=== PATIENT | female | born 1950 | race Hispanic/Latino ===

== ENCOUNTER 2018-02-24 19:07 | Emergency (ER) | payer MEDICARE ==
[2018-02-24] MEDS ORDERED: Albuterol Sulfate 2.5 mg/3 ml Neb ONE (19:44)
[2018-02-24 20:23] LABS: Band 4 % (5-11); Hemoglobin 11.5 g/dL (12.0-16.0); Lymphocytes 21 % (21-51); MDiff Complete? YES; Mean Corpuscular HGB CONC 34.9 g/dL (32.0-36.0); Mean Corpuscular Hemoglobin 33.6 pg (27.0-31.0); Mean Platelet Volume 8.7 fL (7.4-10.4); Monocytes 5 % (0-10); Neutrophil 70 % (42-75); PLT Morphology Comment Appears Adequate; Platelet Count 249 thou/uL (130-400); RBC Distribution Width 11.3 % (11.5-14.5); Red Blood Cell (RBC) Count 3.43 mill/uL (4.20-5.40); White Blood Cell (WBC) Count 8.8 thou/uL (4.8-10.8)
[2018-02-24 20:32] LABS: CKMB 1.7 ng/mL (0-6.6); Troponin I 0.028 ng/mL (< 0.028)
[2018-02-24] MEDS ORDERED: Furosemide 20 MG/2 ML VIAL ONE (20:45)
[2018-02-24 20:57] LABS: ALT (SGPT) 45 U/L (8-55); AST (SGOT) 26 U/L (5-34); Albumin 3.1 g/dL (3.4-4.8); Alkaline Phosphatase 116 U/L (40-150); Anion Gap 12 mmol/L (10-20); BUN (Urea Nitrogen) 15 mg/dL (9.8-20.1); Calc. Creatinine Clearance 0 mL/min (70-130); Calcium 8.5 mg/dL (7.8-10.44); Carbon Dioxide 24 mmol/L (23-31); Chloride 105 mmol/L (98-107); Estimated GFR-MDRD 75; Globulin 3.9 g/dL (2.4-3.5); Glucose 271 mg/dL (80-115); Potassium 4.3 mmol/L (3.5-5.1); Sodium 137 mmol/L (136-145)
== END 2018-02-24 21:09 | disposition short-term general hospital (02) ==
LOC: SCSER 19:07
DX: J96.91 Respiratory failure, unspecified with hypoxia (principal); I11.0 Hypertensive heart disease with heart failure; I50.23 Acute on chronic systolic (congestive) heart failure; E11.9 Type 2 diabetes mellitus without complications; E03.9 Hypothyroidism, unspecified; E78.5 Hyperlipidemia, unspecified; J45.909 Unspecified asthma, uncomplicated; I10 Essential (primary) hypertension; Z79.4 Long term (current) use of insulin
CPT/HCPCS: 80053; 82553; 83880; 84484; 85025; 93005; 94640; J1940; J7611

== ENCOUNTER 2018-02-24 21:53 | Inpatient (IN) | payer MEDICARE ==
[~2018-02-24 21:53] MED LIST: ISOVUE-370 76%-LOCM 1 ML ONE
--- NOTE | 2018-02-24 23:47 | CT ---
CTA THORAX WITH CONTRAST: 02/24/18 at 1:10 p.m. (Computed Tomographic Angiography, chest(noncoronary) with contrast material, and image postprocessin g) (PE protocol) HISTORY: 67-year-old female with dyspnea. TECHNIQUE: IV injection of iodinated contrast: Isovue Scan acquisition timing attempted to coincide with iodinated contrast bolus reaching maximal density in pulmonary arteries. 3D MIP reconstructions. FINDINGS: There is no pulmonary thromboembolism. There is a metallic stent at the most proximal portion of the ascending aorta. There is extensive atherosclerotic calcification of the thoracic aorta. No pulmonary thromboembolism and no aortic dissection. Small bilateral pleural effusions, right greater than left . Small areas of passive atelectasis in the bilateral lower lobes abutting the pleural effusions. Mil d cardiomegaly. Sternotomy wires. Irregularly shaped soft tissue density material in the prevascular space of the anterior mediastinum. There is a minimal sliding hiatal hernia. There is no pulmonary th romboembolism. IMPRESSION: 1. No pulmonary thromboembolism. 2. Stent at aortic root. 3. Status post open heart surgery. 4. Small amount of soft tissue density material in the anterior mediastinum. This is nonspecific , but if the open heart surgery was recent, perhaps this represents a small, mild postsurgical hemato ma. 5. Small bilateral pleural effusions. karin[] POS: ALLA
[2018-02-25] MEDS ORDERED: Nitroglycerin 2% Ointment 1 INCH/1 GM Packet ONE (00:23)
--- NOTE | 2018-02-25 00:45 | PDOC.FPRHP ---
- History of Present Illness Chief Complaint: SOB History of Present Illness: This is a 67 yo F here from [facility] with CHF exacerbation with hypoxia. No known hx of CHF. The patient was placed on Bipap due to hypoxia and given 20mg lasix. Patient has a PMH significant for aortic valve replacement 4-5mo ago. The patient endorses feeling SOB X 3 days. The patient also complains of a nonproductive cough worse within the last week. She recently drove to the area from [place] to visit family. Patient has had to use more pillows to sit up at night to sleep. Walking makes the SOB worse. She endorses feeling chest pressure worse over the last week and worse lying flat. Family states patient is not compliant with medications and had not been taking them regularly prior to traveling to [place] from [place]. Patient denies LE swelling or pain. Denies fever, chills, NVD, or chest pain. ED Course: given 20 lasix, nitro paste - Allergies/Adverse Reactions Allergies Allergy/AdvReac Type Severity Reaction Status Date / Time indomethacin [From Indocin] Allergy Verified 02/25/18 02:12 - Home Medications Medication Instructions Recorded Confirmed Type Amlodipine [Norvasc] 10 mg PO DAILY 02/25/18 02/25/18 History Atorvastatin Calcium 40 mg PO DAILY 02/25/18 02/25/18 History Furosemide 20 mg PO TID 02/25/18 02/25/18 History Levothyroxine Sodium [Synthroid] 25 mcg PO 0600 02/25/18 02/25/18 History Losartan [Cozaar] 50 mg PO DAILY 02/25/18 02/25/18 History Montelukast Sodium [Singulair] 10 mg PO HS 02/25/18 02/25/18 History traMADol HCl [Tramadol HCl] 50 mg PO Q6H PRN 02/25/18 02/25/18 History - History PMHx: uterine cancer, CHF, DMII on insulin, Hypothyroidism, HLD, HTN, asthma PSHx: hysterectomy, aortic valve replacement 4-5months ago FHx: noncontributory Social: social drinker - 1 X month, denies tobacco or drug use - Review of Systems General: reports: weight/appetite/sleep changes (gained). denies: fever/chills , night sweats Eyes: denies: eye pain, vision changes ENT: denies: nasal congestion Respiratory: reports: cough, shortness of breath. denies: congestion Cardiovascular: reports: edema, paroxysmal nocturnal dyspnea, orthopnea. denies : chest pain, palpitation Gastrointestinal: denies: nausea, vomiting, diarrhea, constipation, abdominal pain Genitourinary: denies: incontinence, dysuria, polyuria Skin: denies: rashes Musculoskeletal: denies: pain Neurological: denies: syncope, seizure Psychological: denies: anxiety, depression - Vital signs BP: 172/88 HR: 87 RR: 26 Tmax: 98.8 Pox: 94% on Bipap Wt: 125kg - Physical Exam Constitutional: NAD, awake, alert and oriented, well developed HEENT: normocephalic and atraumatic, EOMI, grossly normal vision, grossly normal hearing Chest: no-tender to palpation, no lesions Heart: RRR, normal S1/S2, no murmurs/rubs/gallops, pulses present -Heart: 1+ pitting edema in BLE Lungs: CTAB, no respiratory distress, good air movement (unable to listen to patient posterior chest) Abdomen: soft, non-tender, bowel sounds present Musculoskeletal: normal tone, ROM grossly normal Neurological: no focal deficit, CN II-XII intact Skin: no rash/lesions, no jaundice Heme/Lymphatic: no unusual bruising or bleeding, no LAD Psychiatric: normal mood and affect, good judgment and insight FMR H&P: A/P - Problem List (1) CHF exacerbation Current Visit: Yes Status: Acute Code(s): I50.9 - HEART FAILURE, UNSPECIFIED (2) HTN (hypertension) Current Visit: Yes Status: Acute Code(s): I10 - ESSENTIAL (PRIMARY) HYPERTENSION (3) HLD (hyperlipidemia) Current Visit: Yes Status: Acute Code(s): E78.5 - HYPERLIPIDEMIA, UNSPECIFIED (4) Hypothyroid Current Visit: Yes Status: Acute Code(s): E03.9 - HYPOTHYROIDISM, UNSPECIFIED (5) Diabetes Current Visit: Yes Status: Acute Code(s): E11.9 - TYPE 2 DIABETES MELLITUS WITHOUT COMPLICATIONS - Plan This is a 67 yo F here for CHF exacerbation with hypoxia. CHF exacerbation - satting 98 on Bipap, will continue trials of weening off bipap - BNP 673, will repeat Tuesday AM - Will order Echo to be done tomorrow - Trop and CKMB neg - Will give Lasix TID HTN - continue current medications - Hydralazine PRN for SBP > 180 DM - WIll continue home med - mod SS HLD - continue home med Hypothyroidism - continue home med Asthma - aware, currently on Bipap, monitoring VS Case Discussed with Dr. Mendez FMR H&P: Upper Level - Pertinent history 67 yo female here for worsening SOB. Started about 3 days ago. Assoc SALAZAR, chest pressure, cough, unable to lay flat requiring multiple pillows to sleep. She recently drove from [place] to [place] and there was concern for PE. She has history of valve replacement in Jun 2017, sleep apnea, hypothyroid, DMII , HTN, HLD, uterine cancer. Family reports she is noncompliant with medications. - Pertinent findings 177/88 HR: 87 Temp: 98.8 SO2: 94% on bipap RR: 26 GEN: AOx3 CARD: RRR, no m/g/r PULM: mild wheezing b/l when listening in the front, but unable to come forward to listen on the back ABD: mild TTP epigastric EXT: b/l 1+ edema to the mid-miranda CTA: no PE, small b/l pleural effusion BNP: 673 trop: <0.028 Glucose: 271 Na: 137 K: 4.3 WBC: 8.8 - Plan Date/Time: 02/25/182 IRichard DO, have evaluated this patient and agree with findings/plan as outlined by internal audit director resident. Pertinent changes/additions are listed here. CHF exacerbation requiring bipap 2/2 respiratory distress elevated BNP clinical findings consistent with CHF since we have no past records and patient is not established in the area, we will check ECHO in the morning for more information about heart function Patient will be admitted to [facility] because she was not able to tolerate weaning down on bipap Hx of aortic heart valve replacement ECHO pending will request records, though they probably will not arrive during the weekend DMII patient does not know what or how much medications she takes so we will start on mild SSI and monitor and titrate HTN elevated in the ER home meds restarted, prn for SBP>180 TIANNA continue with cpap with automatic settings at bedtime once patient does not need bipap HLD Attending Addendum - Attending Addendum Date/Time: 02/25/18 0028 I personally evaluated the patient and discussed the management with Dr. Streeter. I agree with the History, Examination, Assessment and Plan documented above with any addition or exceptions noted below. The patient presents with worsening shortness of breath. Found to have new onset chf exacerbation requiring bipap. Will Admit to imcu, continue bipap, IV lasix. Will get echo, trend i/o. Pt negative for PE.
[2018-02-25] MEDS ORDERED: Ondansetron ODT 4 MG TAB SL PRN (02:18)
[2018-02-25] MEDS ORDERED: Ondansetron HCl/PF 4 MG/2 ML Vial IVP PRN ×2 (02:18→02:26)
[2018-02-25] MEDS ORDERED: Acetaminophen 325 MG TAB PO PRN ×2 (02:18→02:26)
[2018-02-25] MEDS ORDERED: Ondansetron ODT 4 MG TAB PO PRN (02:26)
[2018-02-25] MEDS ORDERED: Dextrose 5% in Water 1,000 ML IV PRN (02:26)
[2018-02-25] MEDS ORDERED: Dextrose 50% Abboject 50 ML SYRINGE SLOW IVP PRN (02:26)
[2018-02-25] MEDS ORDERED: Enoxaparin Sodium 40 MG/0.4 ML SYRINGE SC ONE (02:26)
[2018-02-25] MEDS ORDERED: hydrALAZINE 20 MG/ML VIAL SLOW IVP PRN (02:26)
[2018-02-25] MEDS ORDERED: Acetaminophen 650 MG Suppository PR PRN (02:26)
[2018-02-25 03:09] VITALS: BMI 47.2
[2018-02-25] MEDS: HumaLOG 300 UNITS/3 ML VIAL SC PRN ×4 (05:51→21:03)
--- NOTE | 2018-02-25 08:01 | PDOC.EVN ---
Event Note - Event Note Event Note: Pt reports improved breathing this morning. She denies cp currently. She has mild crackles in her lung bases bilaterally. We are changing lasix from PO to IV, start a beal catheter, and monitor strict I&Os. We will reassess later today.
[2018-02-25 08:10] LABS: Magnesium 1.7 mg/dL (1.6-2.6); Phosphorus 3.2 mg/dL (2.3-4.7)
[2018-02-25 08:13] LABS: CKMB 1.6 ng/mL (0-6.6); Troponin I 0.012 ng/mL (< 0.028)
[2018-02-25] MEDS ORDERED: Furosemide 20 MG TAB PO SCH (09:00)
[2018-02-25] MEDS ORDERED: Aspirin 325 MG TAB PO SCH ×3 (09:00→11:30)
[2018-02-25] MEDS: Amlodipine 10 MG TAB PO SCH (09:04)
[2018-02-25] MEDS: Losartan 25 MG TAB PO SCH (09:04)
[2018-02-25] MEDS ORDERED: Famotidine/PF 20 mg/2ml Vial SLOW IVP SCH (10:15)
--- NOTE | 2018-02-25 18:35 | CON ---
DATE OF CONSULTATION: 02/25/2018 CARDIOLOGY CONSULTATION REASON FOR CONSULTATION: Heart failure. HISTORY OF PRESENT ILLNESS: Mrs. Day is a very pleasant 67-year-old white female who comes to [facility] for shortness of breath. She recently drove from [place] all the way to [place] to [facility] her son, but is thinking about staying here indefinitely. She had open heart surgery and apparentl y she was supposed to have an aortic valve replacement, but this could not be done for some reason an d had to have TAVR apparently go up from the groin and eventually received a new valve. After she dr joseph, she had new onset of shortness of breath. She came to the hospital because of this. CT of the chest showed no evidence of pulmonary embolism and she was admitted for heart failure exacerbation. From what she tells me, she did not need any stenting or any bypass surgery during her valve replacem ent. Currently, she has already been given IV Lasix and is already feeling much better with only patrick al cannula. She was on BiPAP when she came in. PAST MEDICAL HISTORY: 1. History of diastolic heart failure. 2. History of severe aortic stenosis, status post TAVR. 3. TAVR about 5 months ago. 4. Hypertension. 5. Hypothyroidism. 6. Bronchial asthma. 7. History of uterine cancer. 8. History of congestive heart failure. 9. History of type 2 diabetes. OUTPATIENT MEDICATIONS: Include, 1. Norvasc 10 mg a day. 2. Atorvastatin 40 mg at bedtime. 3. Furosemide 20 mg t.i.d. 4. Synthroid 25 mcg a day. 5. Losartan 50 mg a day. 6. Singulair. 7. Tramadol p.r.n. pain. ALLERGIES: INDOMETHACIN. PAST SURGICAL HISTORY: 1. Hysterectomy. 2. Aortic valve replacement about 5 months ago, TAVR apparently. FAMILY HISTORY: Noncontributory. SOCIAL HISTORY: Social alcohol use about one time a month. No tobacco or drug use. REVIEW OF SYSTEMS: A 12-point review of systems was done and is all negative unless stated in the hi story of present illness. PHYSICAL EXAMINATION: VITAL SIGNS: Temperature 98.1, pulse 84, respiration rate 18, satting 96% on 2 liters nasal cannula, blood pressure 156/73. GENERAL: Awake, alert, oriented x3, in no distress. HEENT: Normocephalic, atraumatic. NECK: Supple. LUNGS: Clear. CARDIOVASCULAR: S1, S2. No S3, S4. There is a grade 2/6 systolic murmur in the right upper sternal border. ABDOMEN: Soft with positive bowel sounds. EXTREMITIES: Trace edema. SKIN: Warm and dry. LABORATORY WORK: Reviewed. White count of 8.8, hemoglobin of 11, hematocrit of 33, platelet count o f 249,000. Chemistries with a sodium of 137, potassium of 4.3, chloride of 105, carbon dioxide of 24 , anion gap of 12, BUN of 15, creatinine 0.77, GFR of 75, glucose of 271, calcium of 8.5. Magnesium and phosphorus are normal. Total bilirubin, AST, ALT and alkaline phosphatase are all normal. Tropo demetrice is negative x2. BNP was 673. Albumin of 3.1. EKG was reviewed, no ischemic changes. Echocardiogram was reviewed. Normal EF at 60%-65%. Grade 2/3 diastolic dysfunction. She has a bundle branch block morphology. M ild LVH and elevated right ventricular systolic pressures at about [address] of the chest with contrast was reviewed. No evidence of pulmonary embolism. There is a stent at the aortic root. This is not really a stent. Most likely what they are talking about is a CoreValve TAVR, which has a stent that goes into the ascending aorta. There is a small amount of soft tissue density in the anterior mediastinum, which is nonspecific, likely mild postsurgical hematoma and ther e are small bilateral pleural effusions. ASSESSMENT: 1. Acute on chronic diastolic heart failure. 2. Aortic stenosis, status post transcatheter aortic valve replacement, most likely a CoreValve. 3. Hypertension. PLAN: 1. Continue IV Lasix for now. 2. Resume home medications for blood pressure. 3. Up titrate as needed for blood pressure control. 4. We will plan at least IV Lasix tomorrow and then switch to p.o. and see how she does. She is pro bably going to have to need an increased dose from 20 t.i.d. to probably about 40 twice a day. Thank you for letting us participate in the care of your patient. We will follow.
[2018-02-25] MEDS: Famotidine/PF 20 mg/2ml Vial SLOW IVP SCH (20:49)
[2018-02-25] MEDS: Furosemide 40 MG/4 ML VIAL SLOW IVP SCH (20:49)
[2018-02-26 04:40] LABS: #Eosinphils 0.3 thou/uL (0.0-0.7); #Lymphocytes 1.5 thou/uL (1.20-3.40); #Monocytes 0.4 thou/uL (0.11-0.59); #Neutrophils 3.6 thou/uL (1.40-6.50); %Basophils 0.3 % (0.0-1.0); %Eosinophils 5.3 % (0.0-10.0); %Lymphocytes 25.6 % (21.0-51.0); %Monocytes 7.2 % (0.0-10.0); %Neutrophils 61.6 % (42.0-75.0); Hemoglobin 11.4 g/dL (12.0-16.0); Mean Corpuscular HGB CONC 31.1 g/dL (32.0-36.0); Mean Corpuscular Hemoglobin 32.3 pg (27.0-31.0); Mean Platelet Volume 8.1 fL (7.4-10.4); Platelet Count 246 thou/uL (130-400); RBC Distribution Width 12.1 % (11.5-14.5); Red Blood Cell (RBC) Count 3.52 mill/uL (4.20-5.40); White Blood Cell (WBC) Count 5.8 thou/uL (4.8-10.8)
[2018-02-26 04:55] LABS: ALT (SGPT) 26 U/L (8-55); AST (SGOT) 12 U/L (5-34); Albumin 2.9 g/dL (3.4-4.8); Alkaline Phosphatase 105 U/L (40-150); Anion Gap 10 mmol/L (10-20); BUN (Urea Nitrogen) 17 mg/dL (9.8-20.1); Bilirubin, Total 0.8 mg/dL (0.2-1.2); Calc. Creatinine Clearance 126 mL/min (70-130); Calcium 8.2 mg/dL (7.8-10.44); Carbon Dioxide 30 mmol/L (23-31); Chloride 101 mmol/L (98-107); Estimated GFR-MDRD 69; Globulin 3.7 g/dL (2.4-3.5); Glucose 199 mg/dL (80-115); Potassium 4.3 mmol/L (3.5-5.1); Protein, Total 6.6 g/dL (6.0-8.3); Sodium 137 mmol/L (136-145)
--- NOTE | 2018-02-26 05:27 | PDOC.FM ---
- Subjective Subjective: Pt. states her breathing is improved. She reports decreased leg swelling. She denies cp, N/V, or abdominal pain. She reports she takes insulin at home but has been in the processes of changing her physician. - Objective MAR Reviewed: Yes Vital Signs & Weight: Vital Signs (12 hours) Temp Pulse Resp BP Pulse Ox 02/26/18 04:00 98.3 F 76 18 154/66 H 98 02/25/18 23:45 98.2 F 73 18 132/64 95 02/25/18 19:15 99.2 F 86 22 H 143/85 H 96 Weight Admit Weight 121 kg Weight 120.6 kg I&O: 02/24/18 02/25/18 02/26/18 06:59 06:59 06:59 Intake Total 40 1400 Output Total 1250 Balance 40 150 Result Diagrams: 02/26/18 04:22 02/26/18 04:22 <Marco Pop - Last Filed: 02/26/18 09:14> - Objective Vital Signs & Weight: Vital Signs (12 hours) Temp Pulse Pulse Resp BP BP BP 02/26/18 15:39 99.2 F 87 18 136/78 02/26/18 12:30 93 109/60 02/26/18 10:49 98.5 F 82 18 144/53 H 02/26/18 08:47 81 162/69 H 02/26/18 07:51 02/26/18 07:18 98.6 F 86 20 140/58 L Pulse Ox 02/26/18 15:39 93 L 02/26/18 12:30 02/26/18 10:49 02/26/18 08:47 02/26/18 07:51 96 02/26/18 07:18 94 L Weight Admit Weight 121 kg Weight 120.6 kg I&O: 02/25/18 02/26/18 02/27/18 06:59 06:59 06:59 Intake Total 40 1890 Output Total 2050 900 Balance 40 -160 -900 Result Diagrams: 02/26/18 04:22 02/26/18 04:22 <Bess Mendez - Last Filed: 02/26/18 16:16> Phys Exam - Physical Examination Constitutional: NAD HEENT: PERRLA, moist MMs Respiratory: no wheezing, clear to auscultation bilateral Good air movement, improved breath sounds Cardiovascular: RRR, no significant murmur Gastrointestinal: soft, non-tender, no distention Musculoskeletal: edema present 2+ pitting edema, improved Neurological: moves all 4 limbs Psychiatric: A&O x 3 Skin: cap refill <2 seconds <Marco Pop - Last Filed: 02/26/18 09:14> Dx/Plan (1) (HFpEF) heart failure with preserved ejection fraction Code(s): I50.30 - UNSPECIFIED DIASTOLIC (CONGESTIVE) HEART FAILURE Status: Acute (2) CHF exacerbation Code(s): I50.9 - HEART FAILURE, UNSPECIFIED Status: Acute (3) Diabetes Code(s): E11.9 - TYPE 2 DIABETES MELLITUS WITHOUT COMPLICATIONS Status: Acute (4) HLD (hyperlipidemia) Code(s): E78.5 - HYPERLIPIDEMIA, UNSPECIFIED Status: Acute (5) HTN (hypertension) Code(s): I10 - ESSENTIAL (PRIMARY) HYPERTENSION Status: Acute (6) Hypothyroid Code(s): E03.9 - HYPOTHYROIDISM, UNSPECIFIED Status: Acute - Plan Plan: This is a 67 yo female with a PMH of HTN, DMII, HLD, hypothyroidism CHF exacerbation -Pt. had echo yesterday revealing HFpEF with an EF of 60-65%. We are currently diuresing her with lasix and monitoring strict I&Os. Per Dr. Decker, we will continue IV lasix today and switch to PO. Pt. is currently in the CCU and can likely move to the floor today. HTN -We are continuing her current medications. Pt. has PRN hydralazine for sbp >180 DMII -ACHS accuchecks, SSI HLD -Continue home meds Hypothryoidism -Continue home meds Asthma -Aware, currently on 2L nc Code: DNR Prophylaxis:Lovenox, pepcid Family: none at bedside Disposition: home in 1-2 days <DonnMarco - Last Filed: 02/26/18 09:14> (1) CHF exacerbation Code(s): I50.9 - HEART FAILURE, UNSPECIFIED Status: Acute (2) HTN (hypertension) Code(s): I10 - ESSENTIAL (PRIMARY) HYPERTENSION Status: Acute (3) HLD (hyperlipidemia) Code(s): E78.5 - HYPERLIPIDEMIA, UNSPECIFIED Status: Acute (4) Hypothyroid Code(s): E03.9 - HYPOTHYROIDISM, UNSPECIFIED Status: Acute (5) Diabetes Code(s): E11.9 - TYPE 2 DIABETES MELLITUS WITHOUT COMPLICATIONS Status: Acute <Bess Mendez - Last Filed: 02/26/18 16:16> Attending Addendum - Attending Addendum Date/Time: 02/26/18 0615 I personally evaluated the patient and discussed the management with Dr. Pop. I agree with the History, Examination, Assessment and Plan documented above with any addition or exceptions noted below. Pt is doing well off bipap. continue lasix. Will transfer out of the [facility]. <Bess Mendez - Last Filed: 02/26/18 16:16>
[2018-02-26 05:42] LABS: Free T4 (Free Thyroxine) 0.75 ng/dL (0.70-1.48)
[2018-02-26] MEDS: HumaLOG 300 UNITS/3 ML VIAL SC PRN ×4 (06:12→21:33)
--- NOTE | 2018-02-26 07:06 | CON ---
DATE OF CONSULTATION: 02/25/2018 HISTORY OF PRESENT ILLNESS: Ms. Shay Chavez is a very pleasant 67-year-old female, who was adm itted with a diagnosis of congestive heart failure. Chest CT was done in the emergency room which shows small pleural effusions, but not terrible pulmona ry edema. She has been complaining of shortness of breath for several days. There is no evidence of thromboembolic disease. She did have a BNP of 673. I was consulted because of her presence in the Intermediate Care Unit. PAST MEDICAL HISTORY: 1. Negative for any history of heart failure in the past, although she has had a transcutaneous aort ic valve replacement. It is unclear why this was done as opposed to an open procedure. 2. History of diabetes. 3. History of hypertension. 4. Hypothyroidism. 5. History of asthma. 6. History of uterine cancer. 7. History of aortic stenosis prior to her TAVR. MEDICATIONS: Prior to admission, she was on Norvasc, atorvastatin, Lasix, Synthroid (her TSH is 11), she is only on 25 mcg a day, losartan, Singulair, tramadol. ALLERGIES: She reports NONSTEROIDAL intolerance. FAMILY HISTORY: Negative for lung disease in early age. She rarely drinks. SOCIAL HISTORY: She is a nonsmoker. Does not use drugs. REVIEW OF SYSTEMS: A 10-point review of systems is otherwise negative. PHYSICAL EXAMINATION: GENERAL: She is afebrile, heart rate 86, respiratory rate 22, oximetry is 96 on 2 liters, blood pres sure 109/60. HEENT: Pupils are equal. Sclerae anicteric. NECK: Supple. No lymphadenopathy. LUNGS: Clear. HEART: Regular rhythm. S1 and S2 are slightly distant. ABDOMEN: Soft and nontender. EXTREMITIES: No clubbing, cyanosis, or edema. NEUROLOGIC: Grossly nonfocal. CT pulmonary angiogram shows small bilateral effusions, right greater than left, as mentioned earlier , IMPRESSION: Dyspnea on presentation is suggestive of congestive heart failure, although her radiogra phic abnormalities were very mild. It might be that she just had some diastolic dysfunction. Some hypertension while she was traveling. Asthma still in the differential, although she is not bronchospastic and does not have a long expir atory phase on exam. I will be happy to follow with the other physicians caring for her. I will consult to Cardiology. S he is planning on possibly living in the community, so she needs to establish a relationship with a c ardiologist now that she has an artificial aortic valve. So, 50-minute consult, 50% of the time was spent with me coordinating care.
[2018-02-26] MEDS: Losartan 25 MG TAB PO SCH (08:47)
[2018-02-26] MEDS: Aspirin 325 MG TAB PO SCH (08:47)
[2018-02-26] MEDS: Amlodipine 10 MG TAB PO SCH (08:47)
[2018-02-26] MEDS: Furosemide 40 MG/4 ML VIAL SLOW IVP SCH ×2 (08:48→20:58)
[2018-02-26] MEDS: Enoxaparin Sodium 40 MG/0.4 ML SYRINGE SC SCH (08:48)
[2018-02-26] MEDS: Famotidine/PF 20 mg/2ml Vial SLOW IVP SCH ×2 (08:49→20:58)
--- NOTE | 2018-02-26 11:47 | PDOC.CTH ---
Cardiology Progress Note - Subjective She is doing well. - Objective Vital Signs Temp Pulse Resp BP BP Pulse Ox 02/26/18 10:49 98.5 F 82 18 144/53 H 02/26/18 08:47 81 162/69 H 02/26/18 07:51 96 02/26/18 07:18 98.6 F 86 20 140/58 L 94 L 02/26/18 04:00 98.3 F 76 18 154/66 H 98 02/25/18 23:45 98.2 F 73 18 132/64 95 Admit Weight 266 lb 12.149 oz Weight 265 lb 14.04 oz 02/25/18 02/26/18 02/27/18 06:59 06:59 06:59 Intake Total 40 1890 Output Total 2050 Balance 40 -160 - Physical Examination General/Neuro: alert & oriented x3, NAD Neck: no JVD present Lungs: CTA, unlabored respirations Heart: RRR Abdomen: NT/ND Extremities: + edema B (1+) - Telemetry Telemetry Rhythm: NSR - Labs Result Diagrams: 02/26/18 04:22 02/26/18 04:22 Troponin/CKMB CK-MB (CK-2) 1.6 ng/mL (0-6.6) 02/25/18 07:30 Troponin I 0.012 ng/mL (< 0.028) 02/25/18 07:30 - Assessment/Plan 1. Acute on chronic diastolic dysfunction 2. Elevated right sided pressure. 3. Sleep apnea 4. Non compliance with CPAP since moving. 5. Severe s/p TAVR PLAN: - Continue IV diuresis today. Switch to PO tomorrow. - Continue home meds.
[2018-02-26] MEDS ORDERED: Insulin Glargine 10 UNITS in Pre-Filled Syringe 1 EACH SC SCH (15:30)
--- NOTE | 2018-02-26 17:37 | PRG ---
DATE OF SERVICE: 02/25/2018 SUBJECTIVE: Ms. Shay Chavez is in no distress today. She is in great spirits. She denied being short of breath. PHYSICAL EXAMINATION: VITAL SIGNS: Blood pressure 132/64, heart rate 73 last night, this morning she was 144/53, heart rat e was 82. She has been afebrile. Respiratory rates in the teens. LUNGS: Clear. HEART: Regular rhythm. ABDOMEN: Soft. Intake and output was negative 160. IMPRESSION: 1. Diastolic dysfunction. 2. Status post transcutaneous aortic valve. PLAN: Continue supportive care. She is stable to move out of Critical Care/Intermediate Care Unit.
[2018-02-27] MEDS: Levothyroxine Sodium 25 MCG TAB PO SCH (05:32)
[2018-02-27] MEDS: HumaLOG 300 UNITS/3 ML VIAL SC PRN ×4 (05:32→21:13)
[2018-02-27] MEDS ORDERED: Acetaminophen 325 MG TAB PO PRN (05:55)
--- NOTE | 2018-02-27 06:07 | PDOC.FM ---
- Subjective Subjective: Pt. states her breathing is better. She denies cp, sob, or abdominal pain. She reports a minor headache that she attributes to coughing. She states the cough is non-productive. - Objective MAR Reviewed: Yes Vital Signs & Weight: Vital Signs (12 hours) Temp Pulse Resp BP Pulse Ox 02/27/18 03:37 98.7 F 84 16 137/77 95 02/26/18 23:12 98.7 F 95 16 128/73 96 02/26/18 19:43 99.3 F 89 16 105/70 95 02/26/18 19:38 95 Weight Admit Weight 121 kg Weight 117.208 kg I&O: 02/25/18 02/26/18 02/27/18 06:59 06:59 06:59 Intake Total 40 1890 514 Output Total 0 1000 Balance 40 -239 -474 Result Diagrams: 02/26/18 04:22 02/26/18 04:22 Phys Exam - Physical Examination Constitutional: NAD HEENT: moist MMs Neck: no JVD Respiratory: no wheezing, clear to auscultation bilateral No basilar crackles, moving good air Cardiovascular: RRR, no significant murmur Gastrointestinal: soft, non-tender, no distention, positive bowel sounds Musculoskeletal: pulses present Edema is improved. Pt. has firm nodules in legs, painful to palpation Neurological: moves all 4 limbs Psychiatric: A&O x 3 Dx/Plan (1) (HFpEF) heart failure with preserved ejection fraction Code(s): I50.30 - UNSPECIFIED DIASTOLIC (CONGESTIVE) HEART FAILURE Status: Acute (2) CHF exacerbation Code(s): I50.9 - HEART FAILURE, UNSPECIFIED Status: Acute (3) Diabetes Code(s): E11.9 - TYPE 2 DIABETES MELLITUS WITHOUT COMPLICATIONS Status: Acute (4) HLD (hyperlipidemia) Code(s): E78.5 - HYPERLIPIDEMIA, UNSPECIFIED Status: Acute (5) HTN (hypertension) Code(s): I10 - ESSENTIAL (PRIMARY) HYPERTENSION Status: Acute (6) Hypothyroid Code(s): E03.9 - HYPOTHYROIDISM, UNSPECIFIED Status: Acute - Plan Plan: This is a 67 yo female with a PMH of HTN, DMII, HLD, hypothyroidism CHF exacerbation -Pt. had echo on 02/25 revealing HFpEF with an EF of 60-65%. We are currently diuresing her with lasix and monitoring strict I&Os. Pt. is being switched to PO lasix today. We will see how patient's respiratory status is today and try to wean her off oxygen. In addition, I encouraged her to get up and walk more throughout the day. HTN -We are continuing her current medications. Pt. has PRN hydralazine for sbp >180 DMII -ACHS accuchecks, SSI. Pt. reports taking some insulin at home, however pt. recent stopped many of her medications. I am starting her on 10 of lantus to help control her elevated BG. HLD -Continue home meds Hypothryoidism -Continue home meds. Pt. had an elevated TSH however a normal free T3/T4. We would encourage pt. to follow up with PCP after discharge to evaluate this in the outpt setting. Asthma -Aware, currently on 2L nc Code: DNR Prophylaxis:leatha Rapp Family: none at bedside Disposition: home today pending clinical presentation.
[2018-02-27] MEDS: Aspirin 325 MG TAB PO SCH (08:47)
[2018-02-27] MEDS: Enoxaparin Sodium 40 MG/0.4 ML SYRINGE SC SCH (08:47)
[2018-02-27] MEDS: Furosemide 40 MG TAB PO SCH ×2 (08:47→14:09)
[2018-02-27] MEDS: Amlodipine 10 MG TAB PO SCH (08:47)
[2018-02-27] MEDS: Losartan 25 MG TAB PO SCH (08:47)
[2018-02-27] MEDS: Famotidine/PF 20 mg/2ml Vial SLOW IVP SCH (08:48)
[2018-02-27] MEDS ORDERED: Insulin Glargine 10 UNITS in Pre-Filled Syringe 1 EACH SC SCH (09:00)
--- NOTE | 2018-02-27 12:22 | ADD-PRG ---
DATE OF SERVICE: 02/27/2018 This is an addendum to the note of Dr. Marco Pop. SUBJECTIVE: Mrs. Day has had several rounds of intravenous Lasix and her breathing has much imp roved. She also notes much less peripheral edema. She is also being followed by the Cardiology Serv ice. Her echocardiogram showed an ejection fraction at 60%-65% with a grade 2/3 diastolic dysfunctio n. I am not certain if Cardiology wants to cath this patient or will review her records from [facility]. In the event, we will continue to advance medications for her heart failure in anticipation of a discharge soon depending upon Cardiology's plans. She also has a history of obstructive sleep apne a for which she is not using her CPAP. We have emphasized to her the importance of treating her TIANNA, particularly given her heart failure with preserved ejection fraction.
--- NOTE | 2018-02-27 15:43 | PDOC.CTH ---
Cardiology Progress Note - Subjective Doing well. Off oxygen. Walked without issues. - Objective Vital Signs Temp Pulse Resp BP BP Pulse Ox 02/27/18 11:25 98.7 F 81 20 129/68 92 L 02/27/18 08:47 92 120/52 L 02/27/18 08:00 94 L 02/27/18 07:00 98 F 91 20 120/52 L 94 L Admit Weight 266 lb 12.149 oz Weight 258 lb 6.4 oz 02/26/18 02/27/18 02/28/18 06:59 06:59 06:59 Intake Total 1890 514 480 Output Total 0 1000 200 Balance -160 -486 280 - Physical Examination General/Neuro: alert & oriented x3, NAD Neck: no JVD present Lungs: CTA, unlabored respirations Heart: RRR Abdomen: NT/ND Extremities: + edema B (1+) - Telemetry Telemetry Rhythm: NSR - Labs Result Diagrams: 02/26/18 04:22 02/26/18 04:22 Troponin/CKMB CK-MB (CK-2) 1.6 ng/mL (0-6.6) 02/25/18 07:30 Troponin I 0.012 ng/mL (< 0.028) 02/25/18 07:30 - Assessment/Plan 1. Acute on chronic diastolic heart faliure 2. Aortic stenosis s/p TAVR 3. HTN 4. Sleep apnea PLAN: - PO Lasix - Resume home meds - Home tomorrow. - Follow up in 1 month in my office.
--- NOTE | 2018-02-28 05:12 | PDOC.FM ---
- Subjective Subjective: Pt. reports doing well overnight. She denies sob, cp, or abdominal pain. - Objective MAR Reviewed: Yes Vital Signs & Weight: Vital Signs (12 hours) Temp Pulse Resp BP Pulse Ox 02/27/18 19:42 98.7 F 80 16 120/73 92 L Weight Admit Weight 121 kg Weight 117.208 kg I&O: 02/26/18 02/27/18 02/28/18 06:59 06:59 06:59 Intake Total 6182 403 2105 Output Total 2050 1000 200 Balance -160 -486 1460 Result Diagrams: 02/26/18 04:22 02/26/18 04:22 Phys Exam - Physical Examination Constitutional: NAD HEENT: moist MMs Respiratory: no wheezing, clear to auscultation bilateral Cardiovascular: RRR, no significant murmur Gastrointestinal: soft, non-tender, no distention, positive bowel sounds Musculoskeletal: pulses present, edema present (Improving edema 1+ at ankles) Neurological: moves all 4 limbs Psychiatric: A&O x 3 Skin: normal turgor Dx/Plan (1) (HFpEF) heart failure with preserved ejection fraction Code(s): I50.30 - UNSPECIFIED DIASTOLIC (CONGESTIVE) HEART FAILURE Status: Acute (2) CHF exacerbation Code(s): I50.9 - HEART FAILURE, UNSPECIFIED Status: Acute (3) Diabetes Code(s): E11.9 - TYPE 2 DIABETES MELLITUS WITHOUT COMPLICATIONS Status: Acute (4) HLD (hyperlipidemia) Code(s): E78.5 - HYPERLIPIDEMIA, UNSPECIFIED Status: Acute (5) HTN (hypertension) Code(s): I10 - ESSENTIAL (PRIMARY) HYPERTENSION Status: Acute (6) Hypothyroid Code(s): E03.9 - HYPOTHYROIDISM, UNSPECIFIED Status: Acute - Plan Plan: This is a 67 yo female with a PMH of HTN, DMII, HLD, hypothyroidism CHF exacerbation -Pt. had echo on 02/25 revealing HFpEF with an EF of 60-65%. We are currently diuresing her with PO lasix and monitoring strict I&Os. We will see how patient' s respiratory status is today and try to wean her off oxygen. In addition, I encouraged her to get up and walk more throughout the day. HTN -We are continuing her current medications. Pt. has PRN hydralazine for sbp >180 DMII -ACHS accuchecks, SSI. Pt. reports taking some insulin at home, however pt. recent stopped many of her medications. I am starting her on 10 of lantus to help control her elevated BG. BG has been elevated on 10 units of lantus. I am increasing to 14 today. HLD -Continue home meds Hypothryoidism -Continue home meds. Pt. had an elevated TSH however a normal free T3/T4. We would encourage pt. to follow up with PCP after discharge to evaluate this in the outpt setting. Asthma -Aware, currently on 2L nc Code: DNR Prophylaxis:Lovenox, pepcid Family: none at bedside Disposition: home today pending clinical presentation.
[2018-02-28] MEDS: Levothyroxine Sodium 25 MCG TAB PO SCH (05:37)
[2018-02-28] MEDS: HumaLOG 300 UNITS/3 ML VIAL SC PRN ×2 (05:37→11:46)
[2018-02-28 07:08] VITALS: BP 116/62; TEMP 98.8
[2018-02-28] MEDS: Enoxaparin Sodium 40 MG/0.4 ML SYRINGE SC SCH (08:55)
[2018-02-28] MEDS: Amlodipine 10 MG TAB PO SCH (08:55)
[2018-02-28] MEDS: Losartan 25 MG TAB PO SCH (08:55)
[2018-02-28] MEDS: Furosemide 40 MG TAB PO SCH ×2 (08:56→14:06)
[2018-02-28] MEDS ORDERED: Insulin Glargine 14 UNITS in Pre-Filled Syringe 1 EACH SC SCH (09:00)
[2018-02-28] MEDS ORDERED: Aspirin 81 mg Enteric Coated Tablet PO SCH (09:00)
--- NOTE | 2018-02-28 12:51 | PRG ---
DATE OF SERVICE: 02/28/2018 Ms. Day is up walking in the hallways without any significant dyspnea on exertion. She states t hat she feels much better. She is likely approaching time where she will be able to be discharged an d will follow up with Dr. Hooks as an outpatient.
== END 2018-02-28 17:48 | disposition home or self-care (01) | DRG 292 ==
LOC: ERS 21:53 → EEVIPCON 21:53 → IMCU/EMU 02-25 00:23 → T4-A 02-26 11:52
PROVIDERS: ADMIT Family Medicine; ATTEND Family Medicine
PROC: 5A09357 Assistance with Respiratory Ventilation, Less than 24 Consecutive Hours, Continuous Positive Airway Pressure (ICD-10-PCS; principal; 2018-02-25)
DX: I11.0 Hypertensive heart disease with heart failure (principal); Z68.42 Body mass index [BMI] 45.0-49.9, adult; I50.33 Acute on chronic diastolic (congestive) heart failure; E11.9 Type 2 diabetes mellitus without complications; E78.5 Hyperlipidemia, unspecified; E03.9 Hypothyroidism, unspecified; Z79.4 Long term (current) use of insulin; J45.909 Unspecified asthma, uncomplicated; Z66 Do not resuscitate; R09.02 Hypoxemia; Z95.2 Presence of prosthetic heart valve; Z85.42 Personal history of malignant neoplasm of other parts of uterus; Z90.710 Acquired absence of both cervix and uterus; G47.33 Obstructive sleep apnea (adult) (pediatric); Z91.19 Patient's noncompliance with other medical treatment and regimen; I35.0 Nonrheumatic aortic (valve) stenosis; R63.5 Abnormal weight gain
CPT/HCPCS: 36415; 36416; 71275; 80053; 82553; 83735; 83880; 84100; 84439; 84443; 84481; 84484; 85025; 93005; 93306; 93798; 94640; 94660; 96374; J1650; J1940; J7611; S0028